=== PATIENT | male | born 1995 | race Caucasian/White ===

== ENCOUNTER 2018-02-06 12:56 | Emergency (ER) | payer BC, SELFPAY ==
[2018-02-06 12:58] VITALS: BP 143/84; PULSE 66; RESP 18; TEMP 36.3; O2SAT 97; BMI 27.1
--- NOTE | 2018-02-06 13:11 | CT_ITS ---
STUDY: CT BRAIN WITHOUT CONTRAST REASON FOR EXAM: Male, 22 years old. Add injury. No loss of consciousness. Dizziness. RADIATION DOSAGE (If Supplied By Facility): CTDIvol = ( 44.99 ) mGy, DLP = ( 812.98 ) mGycm TECHNIQUE: Transaxial CT imaging of the brain was performed without administration of intravenous contrast material. Individualized dose optimization techniques were used for this CT. COMPARISON: None. FINDINGS: Normal soft tissue structures. Normal calvarium. Normal size ventricles and extra-axial spaces for the patient's age. Normal white matter tracts of the cerebral hemispheres. Normal basal ganglia and thalami. Normal brainstem. Normal cerebellum. I suspect a small subdural hematoma of the tentorium. There are no findings of an acute ischemic infarction. Normal visualized paranasal sinuses. CT/Brain/Head without Contrast IMPRESSION: Findings suggestive of a small subdural hematoma of the tentorium. N.B. : The above information has been verbally conveyed by Hira Stein MD to Tc Zuñiga MD, on 02/06/2018 13:58:11 (ET). Electronically Signed: Hira Stein MD at 13:59 EST Tel [phone], Service support ,
--- NOTE | 2018-02-06 13:16 | ED.VISSUMM ---
- ER Visit Summary Date of Service: 02/06/18 Chief Complaint: Head injury History of Present Illness: The patient is a 22 M who is otherwise healthy with up-to-date tetanus presents with scalp injury. Patient states that he was at his in-laws house. He states he was going up the stairs and stood. He had a low being on the top of his head. He states he began to have bleeding from his scalp. He did not lose consciousness, but since then, has felt very dizzy, lightheaded, and felt like is going to pass out. He takes no anticoagulants. He denies other injury. The patient is otherwise healthy. Physical Examination: Vital signs reviewed General: Well-nourished, well-developed Head: Normocephalic, 1 cm scalp plaque on the precipice of the scalp atic Eyes: Pupils equal and reactive, extraocular muscles intact Neck, supple, no lymphadenopathy Heart: Regular rate and rhythm Respiratory: No distress, clear bilaterally Abdomen: Soft, nontender, nondistended, no peritoneal signs Back: Nontender Extremities: Nontender, no edema, no cords Skin: Normal color no rash Neuro: Alert and oriented, no focal or lateralizing deficits Test Results: [] Emergency Department Course and Treatment: [The patient has a GCS of 15, but no loss of consciousness. However, he had persistent nausea and has felt lightheaded. I did obtain a head CT. The CT does have findings that are concerning for a small subdural hemorrhage. I did review this with the radiologist. With this, the patient will be transferred to a tertiary trauma center. He requested I can general. He was discussed with Dr. Gaytan and accepted. I elected not to close his small laceration with hellen as he is going to need repeat head CTs and did not want to create artifact. The patient has no active bleeding. He is comfortable with this plan. He will be transferred. Treatment Plan: [] Disposition: Transfer Impression: 1. Tentorial subdural hemorrhage This note was generated with [employer] dictation software. It may contain incorrect words, spelling, and punctuation that were not noted in review of the chart prior to signing ED Disposition - Plan for ED Patient: Chief Complaint: Head Injury Referrals: [facility] Doctor,Out of [Primary Care Provider] -
--- NOTE | 2018-02-06 13:59 | CT_ITS ---
STUDY: CT CERVICAL SPINE WITHOUT CONTRAST REASON FOR EXAM: Male, 22 years old. Syncope RADIATION DOSAGE (If Supplied By Facility): CTDIvol = ( 19.85 ) mGy, DLP = ( 519.31 ) mGycm TECHNIQUE: High resolution transaxial imaging was performed without contrast material. Sagittal and coronal images were reconstructed. Individualized dose optimization techniques were used for this CT. COMPARISON: None FINDINGS: Normal craniovertebral junction. Normal anterior atlantoaxial articulation. Normal odontoid process. There is straightening of the normal cervical lordosis. Normal vertebral bodies and posterior osseous elements. C2-3: Normal endplates. Normal disc height and morphology. Normal central canal and intervertebral neuroforamina. C3-4: Normal endplates. Normal disc height and morphology. Normal central canal and intervertebral neuroforamina. C4-5: Normal endplates. Normal disc height and morphology. Normal central canal and intervertebral neuroforamina. C5-6: Normal endplates. Normal disc height and morphology. Normal central canal and intervertebral neuroforamina. C6-7: Normal endplates. Normal disc height and morphology. Normal central canal and intervertebral neuroforamina. C7-T1: Normal endplates. Normal disc height and morphology. Normal central canal and intervertebral neuroforamina. Normal visualized soft tissue structures. CT/Spine Cervical without Contras IMPRESSION: Normal unenhanced CT examination of the cervical spine. Electronically Signed: Philippe Madden MD at 15:10 EST , Service support ,
[2018-02-06 14:29] LABS: Absolute Lymphocyte Count 1.46 X10^3/ul (0.83-4.51); Absolute Neutrophil Count 1.9 X10^3/uL (2.0-7.7); Basophil# 0.03 X10^3/uL; Basophil% 0.8 % (0-1); Eosinophil# 0.05 X10^3/uL; Eosinophils% 1.3 % (0-5); Hematocrit 44.2 % (40-54); Hemoglobin 15.5 g/dl (13.0-16.5); Lymphocyte # 1.46 X10^3/ul (4.0); Lymphocyte % 38.6 % (19-41); Mean Corp Hgb Conc 35.1 g/gl (32-36); Mean Corpuscular Hgb 30.9 pg (27.0-32.0); Mean Corpuscular Volume 88.2 fL (80-94); Mean Platelet Vol. 10.3 fl (6.2-12.0); Monocyte# 0.31 X10^3/uL; Monocyte% 8.2 % (0-10); Neutrophil # 1.93 X10^3/uL (2.7-7.7); Neutrophil % 51.1 % (47-70); POSITIVE COUNT NO; POSITIVE DIFFERENTIAL NO; POSITIVE MORPHOLOGY NO; Platelet Count 217 K/mm3 (150-450); RBC Distribution Width CV 12.3 % (11.6-14.6); RBC Distribution Width SD 39.7 fl (35.1-43.9); Red Blood Count 5.01 M/mm3 (4.6-6.2); White Blood Count 3.8 K/mm3 (4.4-11.0)
[2018-02-06] MEDS: Ondansetron 4 MG/2 ML Vial IV (14:29)
[2018-02-06 14:35] LABS: Prothrombin Time (Protime)PT. 13.3 SECONDS (11.7-14.9)
[2018-02-06 14:39] LABS: Anion Gap 5 (5-15); BUN 12 mg/dL (7-18); BUN/Creat Ratio 9.5 RATIO (10-20); Calcium,Total 8.8 mg/dL (8.5-10.1); Chloride 102 mmol/L (98-107); Creatinine, Serum 1.26 mg/dL (0.70-1.30); EST Glomerular Filtration Rate 76 mL/min (>60); Est Glom Filt Rate - Afr Amer 92 mL/min (>60); Estimated Creatinine Clearance 101.79 ml/min; Glucose 88 mg/dL (74-106); Potassium 3.7 mmol/L (3.5-5.1); Sodium Level 138 mmol/L (136-145)
[2018-02-06 15:40] VITALS: BP 138/92; PULSE 54; RESP 16; O2SAT 98
== END 2018-02-06 15:40 | disposition short-term general hospital (02) ==
PROVIDERS: Emergency Provider Emergency Medicine
DX: I62.00 Nontraumatic subdural hemorrhage, unspecified (principal)
CPT/HCPCS: 70450; 72125; 80048; 85025; 85610; 96374; 99284; A4216; J2405

== ENCOUNTER → 2018-05-01 15:28 | Outpatient (CLI) | payer BC, SELFPAY ==
[2018-05-01 17:53] LABS: Hematocrit 45.1 % (40-54); Hemoglobin 14.9 g/dl (13.0-16.5); Mean Corpuscular Volume 90.9 fL (80-94); Mean Platelet Vol. 10.7 fl (6.2-12.0); Platelet Count 231 K/mm3 (150-450); RBC Distribution Width CV 12.9 % (11.6-14.6); RBC Distribution Width SD 42.5 fl (35.1-43.9); Red Blood Count 4.96 M/mm3 (4.6-6.2); White Blood Count 6.1 K/mm3 (4.4-11.0)
[2018-05-01 17:55] LABS: Scan Indicated on CBC? Y/N NO
[2018-05-01 18:03] LABS: Erythrocyte Sedimentation Rate 2 mm/hr (0-15)
[2018-05-01 18:07] LABS: Vitamin B12 863 pg/mL (211-911); Vitamin D,25 Hydroxy 7.7 ng/mL (29.95-100.01)
[2018-05-01 18:16] LABS: ALB/GLOB Ratio 1.3 RATIO (0.9-2.4); AST(SGOT) 16 U/L (15-37); Alanine Aminotransfer ALT/SGPT 27 U/L (16-61); Albumin, Serum 4.4 g/dL (3.2-5.0); Alkaline Phosphatase 100 U/L (45-117); Anion Gap 9 (5-15); BUN 23 mg/dL (7-18); Chloride 105 mmol/L (98-107); Creatinine, Serum 1.15 mg/dL (0.70-1.30); EST Glomerular Filtration Rate 85 mL/min (>60); Est Glom Filt Rate - Afr Amer 102 mL/min (>60); Globulin 3.4 g/dL (2.2-4.2); Glucose 93 mg/dL (74-106); Potassium 4.1 mmol/L (3.5-5.1); Protein, Total 7.8 g/dL (6.4-8.2); Sodium Level 143 mmol/L (136-145)
== END ==
LOC: MFPLAB 15:29
PROVIDERS: Family Provider Family Medicine; PCP Family Medicine; Referring Provider Family Medicine; Visit Provider Family Medicine
DX: R53.83 Other fatigue (principal)
CPT/HCPCS: 36415; 80053; 82306; 82607; 84403; 84443; 85027; 85652

== ENCOUNTER 2018-05-14 09:09 | Emergency (ER) | payer BC, SELFPAY ==
[2018-05-14 08:51] VITALS: BMI 27.1
[2018-05-14 09:10] VITALS: BP 145/83; PULSE 61; RESP 18; TEMP 36.2; O2SAT 98; BMI 28.0
--- NOTE | 2018-05-14 09:25 | ED.DCSUM_ITS ---
History of Present Illness Chief Complaint: Abd Pain Detail of Chief Complaint: Nausea, vomiting diarrhea Informant: Patient Onset: - - Abdominal pain started 2 days ago. The vomiting started 3 days ago. Context: - - Vomiting was associated with nothing initially. He now reports he vomits anytime he attempts to drink anything Timing: Intermittent Quality: 4 episodes of emesis a day and 2 loose bowel movements daily Location: Crampy generalized abdominal discomfort Current Severity: Mild Maximum Severity: Moderate Worsened by: Palpation and vomiting and diarrhea Relieved by: Nothing Associated Symptoms: Thirst, dry mouth and orthostatic symptoms Narrative: Patient is a 22-year-old male who presents with abdominal pain that is described as crampy and is generalized. He reports nausea vomiting diarrhea. He denies hematemesis, melena medication. He states he was sent from the urgent care because of tenderness in the right upper quadrant. Mother has history of cholelithiasis. He has no medical problems. He denied intolerance to greasy food. Occasionally he states he has an upset stomach. He does report decreased urine output. He denies blood or mucus in his stool. He has no risk factors for infectious diarrhea and is not been on any antibiotic for the past month. He denies respiratory or cardiac symptoms. There is an erythematous blotchy 1 x 3 cm blanching rash left antecubital fossa. Prior similar symptoms: No Recent Illness/Hospitalization: No - Past Medical History (1) Depression Status: Acute Past Medical History - Allergies and Home Meds Allergies/Adverse Reactions: Allergies No Known Allergies Allergy (Verified 05/14/18 09:10) Primary Care Physician: Sundar Nielsen MD [Primary Care Provider] - Past Medical History: None Surgical History: no surgical history Lives: Spouse/ Significant Other Smoking Status: Never smoker Alcohol: None Review of Systems General: Denies: Chills, Fever, Sweats, Weight loss Eyes: Denies: Visual changes - bilaterally, Blurred Vision - bilaterally, Diplopia ENT: Denies: Bilateral ear pain, Rhinorrhea, Sore throat Cardiovascular: Denies: Chest pain, Palpitations Respiratory: Denies: Dyspnea, Cough, Dyspnea on exertion, Orthopnea Gastrointestinal: Reports: Abdominal pain, Nausea, Vomiting, Diarrhea. Denies: Melena, Hematochezia Genitourinary: Denies: Dysuria, Hematuria, Frequency Musculoskeletal: Denies: Myalgias, Arthralgias, Back pain, Extremity Pain Skin: Denies: Rash, Wounds Neurological: Denies: Headache, Weakness, Numbness Psych: Reports: Depression. Denies: Suicidal thoughts Hematologic: Denies: Easy bruising, Easy bleeding Physical Exam Vital Signs/Narrative: Vital Signs Temp Pulse Resp BP Pulse Ox 05/14/18 09:10 97.1 F L 61 18 145/83 H 98 Inital Vital Signs reviewed: Yes General: Well nourished, Well developed, No Acute Distress Head: Normocephalic, Atraumatic Eyes: Perrl, EOMI. Negative for: Pale conjunctiva, Scleral icterus ENT: No rhinorrhea, TM's clear, Dry mucous membranes. Negative for: Nasal congestion Neck: Supple, Nontender, No lymphadenopathy, No JVD Cardiovascular: Regular rate, Regular rhythm, No murmurs, Normal S1, Normal S2 Respiratory: No distress, CTA bilaterally, Chest nontender Abdomen: Soft, Nondistended, No masses, Tender. Negative for: Nontender, Normal bowel sounds, Guarding, Rebound tenderness, Hypoactive bowel sounds, Hepatomegaly, Splenomegaly, Mass, Ventral hernia, Umbilical hernia, Hernia irreducible, Rovsig's sign, Ahmadi's sign Back: Nontender, Normal Inspection Extremities: Nontender, No edema Skin: Normal color, No rash, Rash - 1 x 3 cm blanching erythematous rash without lymphangitis, induration or warmth left antecubital fossa.. Negative for: Cyanosis, Jaundice Neurological: Alert, Oriented x3, Cranial nerves II-XII grossly intact, Normal Strength, Normal Sensation, Normal Gait Psychological: Depressed Diagnostic/Tx/Re-eval Laboratory Results 05/14/18 09:38 Sodium 140 Potassium 3.7 Chloride 106 Carbon Dioxide 29.0 Anion Gap 5 BUN 13 Creatinine 1.11 Estim Creat Clear Calc 115.55 Est GFR (MDRD) Af Amer 107 Est GFR (MDRD) Non-Af 88 BUN/Creatinine Ratio 11.7 Glucose 95 Calcium 8.4 L - Rhythm Strip Rhythm Strip: Sinus Rhythm Rate: 68 Ectopy: None - Medical Decision Making With generalized colicky abdominal pain with nausea vomiting diarrhea will treat symptomatically. Since patient states he is not had anything to drink in the last 24 hours or unable to keep anything down for the past 24 hours basic mental panel was obtained. He was treated with 4 mg of Zofran and 1 L normal saline. Suspect patient's symptoms are secondary to viral gastritis. Since he does not have a clinical Ahmadi sign hepatic enzymes were not obtained. Patient was able to drink a can of [place] rahul. He states his pain has diminished. Plan is to discharge to home with prescription for Zofran. Basic metabolic panel was unremarkable with no evidence of hypokalemia, acid-base disturbance or acute kidney injury. ED Disposition - Plan for ED Patient: Disposition: Home or Assisted Living Diagnosis: Combined abdominal pain, vomiting, and diarrhea Instructions: ED Vomiting Diarrhea Nonspecific Ad Prescriptions: Ondansetron [Zofran Odt] 4 mg PO Q8H PRN PRN #5 tablet PRN Reason: Nausea Referrals: Sundar Nielsen MD [Primary Care Provider] - 3-5 Days if not improving Additional Instructions: Your prescription was electronically transmitted to [facility].
[2018-05-14] MEDS: Ondansetron 4 MG/2 ML Vial IV (09:45)
[2018-05-14] MEDS: 0.9% Normal Saline 1,000 ML 1000 ML IV (09:45)
[2018-05-14 10:08] LABS: Anion Gap 5 (5-15); BUN 13 mg/dL (7-18); BUN/Creat Ratio 11.7 RATIO (10-20); Calcium,Total 8.4 mg/dL (8.5-10.1); Chloride 106 mmol/L (98-107); Creatinine, Serum 1.11 mg/dL (0.70-1.30); EST Glomerular Filtration Rate 88 mL/min (>60); Est Glom Filt Rate - Afr Amer 107 mL/min (>60); Estimated Creatinine Clearance 115.55 ml/min; Glucose 95 mg/dL (74-106); Potassium 3.7 mmol/L (3.5-5.1); Sodium Level 140 mmol/L (136-145)
[2018-05-14 11:47] VITALS: BP 128/77; PULSE 68; RESP 17; O2SAT 98
== END 2018-05-14 11:48 | disposition home or self-care (01) ==
PROVIDERS: Emergency Provider Emergency Medicine; Family Provider Family Medicine; PCP Family Medicine
DX: R10.9 Unspecified abdominal pain (principal); R19.7 Diarrhea, unspecified; R11.2 Nausea with vomiting, unspecified; F32.9 Major depressive disorder, single episode, unspecified
CPT/HCPCS: 80048; 96361; 96374; 99283; J7030; A4216; J2405

== ENCOUNTER 2018-10-23 14:38 | Emergency (ER) | payer BC, SELFPAY ==
[2018-10-23 14:38] VITALS: BP 156/115; PULSE 74; RESP 16; TEMP 35.9; O2SAT 97; BMI 27.8
--- NOTE | 2018-10-23 15:37 | CT_ITS ---
STUDY: CT ABDOMEN AND PELVIS WITHOUT CONTRAST REASON FOR EXAM: Male, 23 years old. Right lower quadrant pain RADIATION DOSAGE (If Supplied By Facility): DLP = ( 566.93 ) mGycm TECHNIQUE: Transaxial images were obtained from the dome of the diaphragm to the symphysis pubis without oral contrast, and without intravenous contrast. Sagittal and coronal images were reconstructed. Individualized dose optimization techniques were used for this CT. COMPARISON: None. FINDINGS: Evaluation of the abdominal viscera is limited in the absence of intravenous contrast. The visualized lung bases are clear. The visualized portions of the heart and pericardium are within normal limits. There are no calcified gallstones present. The liver demonstrates an unremarkable unenhanced appearance. The spleen is normal in size. The pancreas demonstrates an unremarkable unenhanced appearance. The adrenal glands are within normal limits. There is an obstructing 2 mm stone in the right distal ureter with mild associated hydroureteronephrosis. Mild right perinephric stranding is present. The left kidney is normal. Normal visualized stomach. There is no bowel obstruction or inflammation. The aorta is normal in caliber. There is no abdominal or pelvic free air, free fluid, fluid collection or lymphadenopathy. There are no destructive osseous lesions. CT/Abdomen/Pelvis without Cont IMPRESSION: Obstructing 2 mm stone in the right distal ureter with mild associated hydroureteronephrosis. Electronically Signed: Herbie Callaway, at 18:05 EDT Tel , Service support ,
--- NOTE | 2018-10-23 15:39 | ED.DCSUM_ITS ---
- ER Visit Summary Date of Service: 10/23/18 Chief Complaint: Abdominal pain History of Present Illness: The patient is a 23 M who has abdominal pain. Started 2 hours ago its waxing and waning but comes in waves. Is very sharp in the right side and radiates to his right groin. He has had nausea and is vo mited twice. No diarrhea but seems to be constipated. No urinary symptoms. He denies fevers. He has had an appendectomy in the past and says he has had issues with abdominal pain since he was a child. He took nothing for this at home. Physical Examination: Vital signs reviewed. HEENT exam unremarkable. Heart is regular rate and rhythm without murmurs. Lungs are clear to auscultation. Abdomen is soft with tenderness on the right lower quadrant. No guarding or rebound tenderness. Extremities reveal no edema. Skin exam normal. Neurologic exam normal. Test Results: Laboratory studies unremarkable save for BUN of 19 and creatinine 1.54. Urinalysis negative except for ketones of 15. CBC normal. CAT scan reveals a 2 mm right distal ureteral stone Emergency Department Course and Treatment: The patient was given morphine and Zofran without any relief but he was given Toradol and feels much better. The stone is likely the cause of his pain. I will give him a few [place] to take for pain at home. He will use ibuprofen as well. He will follow-up with his PCP Treatment Plan: [] Disposition: Discharge Impression: Right ureterolithiasis This note was generated with [employer] dictation software. It may contain incorrect words, spelling, and punctuation that were not noted in review of the chart prior to signing ED Disposition - Plan for ED Patient: Referrals: Sundar Nielsen MD [Primary Care Provider] -
[2018-10-23] MEDS: Ondansetron 4 MG/2 ML Vial IV (15:44)
[2018-10-23] MEDS: Morphine 4 MG/ML Syringe IV (15:44)
[2018-10-23 15:49] LABS: Absolute Lymphocyte Count 1.49 X10^3/uL (0.83-4.51); Absolute Neutrophil Count 5.6 X10^3/uL (2.0-7.7); Basophil# 0.04 X10^3/uL; Basophil% 0.5 % (0-1); Eosinophil# 0.07 X10^3/uL; Eosinophils% 0.9 % (0-5); Lymphocyte # 1.49 X10^3/ul (4.0); Lymphocyte % 19.4 % (19-41); Mean Corp Hgb Conc 34.9 g/dL (32-36); Mean Corpuscular Hgb 30.8 pg (27.0-32.0); Mean Corpuscular Volume 88.3 fL (80-94); Mean Platelet Vol. 10.3 fl (6.2-12.0); Monocyte# 0.51 X10^3/uL; Monocyte% 6.6 % (0-10); NRBC Flagged by Analyzer 0 % (0-5); Neutrophil # 5.56 X10^3/uL (2.7-7.7); Neutrophil % 72.2 % (47-70); Platelet Count 214 K/mm3 (150-450); RBC Distribution Width CV 12.1 % (11.6-14.6); RBC Distribution Width SD 39.2 fl (35.1-43.9); Red Blood Count 4.87 M/mm3 (4.6-6.2); White Blood Count 7.7 K/mm3 (4.4-11.0)
[2018-10-23 16:11] LABS: AST(SGOT) 16 U/L (15-37); Alanine Aminotransfer ALT/SGPT 34 U/L (16-61); Albumin, Serum 4.2 g/dL (3.2-5.0); Alkaline Phosphatase 96 U/L (45-117); Anion Gap 8 (5-15); BUN 19 mg/dL (7-18); BUN/Creat Ratio 12.3 RATIO (10-20); Bilirubin, Direct 0.18 mg/dL (0.00-0.30); Calcium,Total 8.8 mg/dL (8.5-10.1); Chloride 108 mmol/L (98-107); Creatinine, Serum 1.54 mg/dL (0.70-1.30); EST Glomerular Filtration Rate 60 mL/min (>60); Est Glom Filt Rate - Afr Amer 73 mL/min (>60); Estimated Creatinine Clearance 82.58 ml/min; Globulin 3.5 g/dL (2.2-4.2); Glucose 105 mg/dL (74-106); Lipase 81 U/L (73-393); Potassium 3.6 mmol/L (3.5-5.1); Protein, Total 7.7 g/dL (6.4-8.2); Sodium Level 144 mmol/L (136-145)
[2018-10-23 16:39] LABS: Bacteria 0 SEEN /hpf (None Seen); Mucous, Urine 0 SEEN /hpf (<or=2+); Red Blood Cells-Urine 0 SEEN /hpf (0-5); Squamous Epithelial Cells - UA 0 SEEN /hpf (0-5); White Blood Cells 0 SEEN /hpf (0-5)
[2018-10-23] MEDS: Ketorolac 30 MG/ML Syringe IV (16:46)
[2018-10-23 16:48] LABS: Color, Urine Yellow (Yellow); Glucose, Dipstick Normal (Normal); Ketone-Dipstick 15 mg/dl (Negative); Leukocyte Esterase-Dipstick Negative /ul (Negative); Nitrite-Dipstick Negative (Negative); Occult Blood-Urine Negative /ul (Negative); Protein-Dipstick 15 mg/dl (Negative); Specific Gravity, Urine 1.015 (1.002-1.030); Urine Bilirubin Dipstick Negative (Negative); Urine Clarity Clear (Clear); Urine Urobilinogen 1 mg/dl (Normal)
--- NOTE | 2018-10-23 18:15 | DCINST.ED_ITS ---
ED Disposition - Plan for ED Patient: Disposition: Home or Assisted Living Instructions: KIDNEY STONE w/ Colic Prescriptions: Hydrocodone Bitart/Apap 5-325 [[place] 5MG-325MG] 1 tab PO Q6H PRN PRN 3 Days #8 tab PRN Reason: Pain Prescription Printed Referrals: Sundar Nielsen MD [Primary Care Provider] -
[2018-10-23 18:34] VITALS: BP 142/80; PULSE 80; RESP 17; O2SAT 97
--- NOTE | 2018-10-23 18:34 | ED.RN ---
PT GIVEN WRITTEN AND VERBAL DISHARGE INSTRUCTIONS AND HOME GOING PRESCRIPTIONS. PT EDUCATED NOT TO DRIVE WHEN TAKING NARCOTIC MEDICATION. PT VERBALIZES UNDERSTANDING AND DENIES ANY FURTHER QUESTIONS. PT IV D/C AND COVERED WITH 2X2 GAUZE AND PAPER TAPE. PT DRESSES SELF AND AMBULATES OUT WITH FRIEND.
== END 2018-10-23 18:36 | disposition home or self-care (01) ==
PROVIDERS: Emergency Provider Emergency Medicine; Family Provider Family Medicine; PCP Family Medicine
DX: N20.1 Calculus of ureter (principal); K59.00 Constipation, unspecified; Z87.442 Personal history of urinary calculi
CPT/HCPCS: 74176; 80048; 80076; 81001; 83690; 85025; 96374; 96375; 99284; A4216; J2405

== ENCOUNTER → 2020-07-06 12:21 | Outpatient (CLI) | payer BC, SELFPAY ==
[2020-07-06 12:27] LABS: Bacteria 0 SEEN /hpf (None Seen); Mucous, Urine 0 SEEN /hpf (<or=2+); Red Blood Cells-Urine 0 SEEN /hpf (0-5); Squamous Epithelial Cells - UA 0 SEEN /hpf (0-5); White Blood Cells 0 SEEN /hpf (0-5)
[2020-07-06 15:08] LABS: Absolute Lymphocyte Count 1.72 X10^3/uL (0.83-4.51); Absolute Neutrophil Count 2.4 X10^3/uL (2.0-7.7); Basophil# 0.04 X10^3/uL; Basophil% 0.9 % (0-1); Eosinophil# 0.11 X10^3/uL; Eosinophils% 2.4 % (0-5); Hematocrit 44.6 % (40-54); Hemoglobin 14.7 g/dL (13.0-16.5); Lymphocyte # 1.72 X10^3/ul (0.83-4.51); Lymphocyte % 36.8 % (19-41); Mean Platelet Vol. 10.8 fl (6.2-12.0); Monocyte# 0.37 X10^3/uL; Monocyte% 7.9 % (0-10); NRBC Flagged by Analyzer 0 % (0-5); Neutrophil # 2.43 X10^3/uL (2.7-7.7); Neutrophil % 51.8 % (47-70); Platelet Count 220 K/mm3 (150-450); RBC Distribution Width CV 12.7 % (11.6-14.6); RBC Distribution Width SD 41.8 fl (35.1-43.9); White Blood Count 4.7 K/mm3 (4.4-11.0)
[2020-07-06 15:20] LABS: Color, Urine Yellow (Yellow); Glucose, Dipstick Normal (Normal); Ketone-Dipstick Negative (Negative); Leukocyte Esterase-Dipstick Negative /ul (Negative); Nitrite-Dipstick Negative (Negative); Occult Blood-Urine Negative /ul (Negative); Protein-Dipstick Negative (Negative); Urine Bilirubin Dipstick Negative (Negative); Urine Clarity Clear (Clear); Urine Urobilinogen Normal (Normal)
[2020-07-06 15:51] LABS: ALB/GLOB Ratio 1.1 RATIO (0.9-2.4); AST(SGOT) 22 U/L (15-37); Alanine Aminotransfer ALT/SGPT 43 U/L (16-61); Albumin, Serum 3.9 g/dL (3.2-5.0); Alkaline Phosphatase 105 U/L (45-117); Anion Gap 5 (5-15); BUN 18 mg/dL (7-18); Calcium,Total 8.9 mg/dL (8.5-10.1); Chloride 106 mmol/L (98-107); Creatinine, Serum 1.06 mg/dL (0.70-1.30); EST Glomerular Filtration Rate 91 mL/min (>60); Est Glom Filt Rate - Afr Amer 110 mL/min (>60); Globulin 3.7 g/dL (2.2-4.2); Glucose 93 mg/dL (74-106); Magnesium 1.9 mg/dL (1.6-2.6); Protein, Total 7.6 g/dL (6.4-8.2); Sodium Level 140 mmol/L (136-145)
== END ==
PROVIDERS: Family Medicine; PCP Family Medicine; Referring Provider Family Medicine; Visit Provider Family Medicine
DX: R03.0 Elevated blood-pressure reading, without diagnosis of hypertension (principal)
CPT/HCPCS: 36415; 80053; 81001; 83735; 84443; 85025

== ENCOUNTER 2023-05-08 00:22 | Emergency (ER) | payer BC, SELFPAY ==
[2023-05-08 00:23] VITALS: BP 120/94; PULSE 99; RESP 16; TEMP 36.1; O2SAT 95; BMI 32.4
[2023-05-08] MEDS: Metoclopramide 10 MG/2 ML Vial 5 MG IV (00:39)
[2023-05-08] MEDS: Ketorolac 30 MG/ML Syringe IV (00:39)
[2023-05-08] MEDS: 0.9% Normal Saline (1000mL) 1,000 ML 1000 ML IV (00:41)
[2023-05-08 00:48] LABS: Absolute Neutrophil Count 10.4 X10^3/uL (2.0-7.7); Basophil# 0.05 X10^3/uL; Basophil% 0.4 % (0-1); Eosinophil# 0.09 X10^3/uL; Eosinophils% 0.8 % (0-5); Hematocrit 45.6 % (40-54); Hemoglobin 15.4 g/dL (13.0-16.5); Lymphocyte % 5.9 % (19-41); Mean Corp Hgb Conc 33.8 g/dL (32-36); Mean Corpuscular Volume 85.9 fL (80-94); Mean Platelet Vol. 10.3 fl (6.2-12.0); Monocyte# 0.65 X10^3/uL; Monocyte% 5.5 % (0-10); NRBC Flagged by Analyzer 0 % (0-5); Neutrophil # 10.37 X10^3/uL (2.7-7.7); Neutrophil % 87.1 % (47-70); Platelet Count 254 K/mm3 (150-450); RBC Distribution Width CV 12.8 % (11.6-14.6); RBC Distribution Width SD 39.5 fl (35.1-43.9); Red Blood Count 5.31 M/mm3 (4.6-6.2); White Blood Count 11.9 K/mm3 (4.4-11.0)
[2023-05-08 01:06] LABS: ALB/GLOB Ratio 1.2 RATIO (0.9-2.4); AST(SGOT) 20 U/L (15-37); Alanine Aminotransfer ALT/SGPT 40 U/L (16-61); Albumin, Serum 4.3 g/dL (3.2-5.0); Alkaline Phosphatase 98 U/L (45-117); Anion Gap 6 (5-15); BUN 23 mg/dL (7-18); BUN/Creat Ratio 15.9 RATIO (10-20); Calcium,Total 9.1 mg/dL (8.5-10.1); Chloride 106 mmol/L (98-107); Creatinine, Serum 1.45 mg/dL (0.70-1.30); EST Glomerular Filtration Rate 62 mL/min (>60); Est Glom Filt Rate - Afr Amer 75 mL/min (>60); Estimated Creatinine Clearance 98.28 ml/min; Globulin 3.6 g/dL (2.2-4.2); Glucose 145 mg/dL (74-106); Potassium 3.5 mmol/L (3.5-5.1); Protein, Total 7.9 g/dL (6.4-8.2); Sodium Level 138 mmol/L (136-145)
--- NOTE | 2023-05-08 01:19 | EDS_ITS ---
HPI HPI - GI History of Present Illness Chief Complaint: Nausea/Vomiting/Diarrhea Informant: patient Narrative Narrative: Patient presents after about 4 hours of nonbloody vomiting and diarrhea. No abdominal pain. No fevers or chills. He states from all of the vomiting, his chest muscles are spasming, and his back is spasming. He states it feels like muscle pain. States he has had this before. No known sick contacts. No travel out of the area. States last thing he ate was [employer] prior to the onset of symptoms, but his girlfriend ate the same thing at the same time and she is not sick. Has had prior remote appendectomy no other abdominal surgeries. [facility] Medical History Chronic neck and back pain Contact with and (suspected) exposure to other viral communicable diseases COVID-19 Diarrhea Severe headache Home Medications ondansetron 4 mg disintegrating tablet 8 mg (2 x 4 mg) PO Q8H PRN PRN Nausea #20 tabs 05/08/23 [Rx Last Taken Unknown] Allergy/AdvReac Type Severity Reaction Status Date / Time No Known Allergies Allergy Verified 05/08/23 00:22 Surgical History History of appendectomy Social History Smoking Status: Never smoker alcohol intake: current ROS ROS ED Constitutional Constitutional ED: Denies chills or fever(s) Eyes Eyes: Denies change in vision or diplopia ENT ENT ED: Denies rhinorrhea or sore throat Cardiovascular Cardiovascular: Reports as per HPI and chest pain; Denies lightheadedness, palpitations or radiating jaw, neck or arm pain Respiratory/Chest Respiratory/Chest: Denies cough or dyspnea Gastrointestinal Gastrointestinal: Reports diarrhea, nausea and vomiting; Denies abdominal pain, hematochezia or melena Genitourinary Genitourinary ED: Denies dysuria or hematuria Musculoskeletal Musculoskeletal: Reports back pain; Denies neck pain Integumentary Denies abscess or rash Neurologic Neurologic: Denies headache(s), paresthesias or weakness Psychiatric Psychiatric: Denies anxiety or suicidal thoughts EXAM Physical Exam Const Vital Signs: 03/06/24 00:23 Temperature 97 F L Temperature Source Temporal Pulse Rate 99 Respiratory Rate 16 Blood Pressure 120/94 H Blood Pressure Mean 102 Pulse Ox 95 Positive well nourished and well developed Constitutional Narrative: Appears malaised, no distress General Appearance ED: well developed and NAD HEENT Reports moist mucous membranes normocephalic and atraumatic Eyes PERRL and EOMs intact bilaterally Neck full ROM and supple Chest Wall Chest Narrative: Tender throughout, reproducing his discomfort Resp normal respiratory effort and clear to auscultation bilaterally Cardio regular rate, regular rhythm and no murmurs GI non-distended GI Narrative: Mildly tender across upper abdomen no guarding or rebound tenderness negative Ahmadi Auscultation: normoactive bowel sounds Palpation: soft Back/Spine no CVA tenderness General Back: other FROM Extremity normal to inspection General Extremety ED: Negative for edema, pulses abnormal or tenderness General Extremity: Negative for edema or pulses abnormal Neuro oriented x3, CN's II-XII intact bilaterally and no sensory deficits noted Sensorium / Orientation: awake and alert Motor Exam: strength 5/5 throughout Psych thought process normal Mood & Affect: anxious Skin no rashes or lesions noted and no wounds MDM MDM MDM Narrative Medical decision making narrative: Labs noted there is a mild nonspecific leukocytosis and mild elevated creatinine. He was given IV fluids, Reglan, and Toradol for his symptoms. He feels a lot better. Mother is here and really wants an EKG done to make sure he is not having a heart attack. With reproducible chest discomfort, and no risk factors I advised her that I feel this is very likely to be musculoskeletal, as the patient suggested, but she still wants an EKG which I was happy to order. I reviewed it and I interpret the EKG is normal. Lab Data Attestation: I reviewed the patient's lab results. Labs: Laboratory Results - last 24 hr 05/08/23 00:40 WBC 11.9 H RBC 5.31 Hgb 15.4 Hct 45.6 MCV 85.9 MCH 29.0 MCHC 33.8 RDW Std Deviation 39.5 RDW Coeff of Paresh 12.8 Plt Count 254 MPV 10.3 Immature Gran % (Auto) 0.300 Neut % (Auto) 87.1 H Lymph % (Auto) 5.9 L [place] % (Auto) 5.5 Eos % (Auto) 0.8 Baso % (Auto) 0.4 Absolute Neuts (auto) 10.4 H Absolute Lymphs (auto) 0.70 L Nucleated RBC % 0 Sodium 138 Potassium 3.5 Chloride 106 Carbon Dioxide 26.0 Anion Gap 6 BUN 23 H Creatinine 1.45 H Estim Creat Clear Calc 98.28 Est GFR (MDRD) Af Amer 75 Est GFR (MDRD) Non-Af 62 BUN/Creatinine Ratio 15.9 Glucose 145 H Calcium 9.1 Total Bilirubin 0.70 AST 20 ALT 40 Alkaline Phosphatase 98 Total Protein 7.9 Albumin 4.3 Globulin 3.6 Albumin/Globulin Ratio 1.2 Rhythm Strip Rhythm Strip: Sinus Rhythm Rate: 92 Ectopy: None EKG Initial EKG: Attestation: I personally reviewed and interpreted this EKG as follows: Interpretation: Sinus Rhythm and No Acute Injury Pattern Comments: nml EKG Discharge Plan Triage Chief Complaint: Nausea/Vomiting/Diarrhea ED Provider: Jeremias Chahal Dx/Rx/DC Orders Clinical Impression: Nausea vomiting and diarrhea, Musculoskeletal chest pain, Musculoskeletal back pain Instructions: ED Vomit Diarrhea Nonspec Adult Prescriptions: New ondansetron [ondansetron] 4 mg tablet,disintegrating 8 mg PO Q8H PRN PRN (Reason: Nausea) Qty: 20 0RF Primary Care Provider: Sundar Nielsen Referrals: Sundar Nielsen MD [Primary Care Provider] - 3-5 Days if not improving Disposition Disposition: Home, Self Care
--- NOTE | 2023-05-08 01:24 | EKG12_ITS ---
Test Reason : DYSRHYTHMIA Blood Pressure : / mmHG Vent. Rate : 092 BPM Atrial Rate : 092 BPM P-R Int : 154 ms QRS Dur : 072 ms QT Int : 358 ms P-R-T Axes : 027 054 022 degrees QTc Int : 442 ms Normal sinus rhythm Normal ECG Confirmed by Tc Baron ([id number]), acquisitions editor GUS DANG ([id number]) on 05/08/2023 9:46:10 AM Referred By: Confirmed By:Tc Baron
[2023-05-08 02:03] VITALS: BP 122/82; PULSE 102; RESP 16; TEMP 36.6; O2SAT 96
== END 2023-05-08 02:09 | disposition home or self-care (01) ==
PROVIDERS: Emergency Provider Emergency Medicine; PCP Family Medicine; Visit Provider Emergency Medicine
DX: R11.2 Nausea with vomiting, unspecified (principal); R19.7 Diarrhea, unspecified; R07.89 Other chest pain; Z90.49 Acquired absence of other specified parts of digestive tract; M54.89 Other dorsalgia
CPT/HCPCS: 80053; 85025; 93005; 99283; J7030; A4216

== ENCOUNTER 2023-11-10 03:02 | Emergency (ER) | payer BC, SELFPAY ==
[2023-11-10 03:03] VITALS: BP 148/91; PULSE 71; RESP 18; TEMP 36.5; O2SAT 97; BMI 34.2
--- NOTE | 2023-11-10 03:28 | EX.ED.GUMALE ---
HPI History of Present Illness Chief Complaint: Male Pain/Injury Informant: patient Narrative Narrative: Patient presenting almost 3:30 AM for left testicular pain. He states is been bothering him since about 8 AM the previous morning, about 20 hours. He states this started gradually about an hour after his significant other accidentally kneed him in the scrotum in bed. Pain has been coming in waves off-and-on, but the pain has been constant the entire day. Tonight when he laid down it became worse so he presents for evaluation. He states the pain radiates up into his abdomen a little bit, but he has no back pain, unilateral abdominal pain, nausea, vomiting, fevers, chills, or any urinary symptoms or hematuria. [facility] Medical History ADHD PTSD (post-traumatic stress disorder) COVID-19 Contact with and (suspected) exposure to other viral communicable diseases Chronic neck and back pain Diarrhea Severe headache Home Medications ?Medication ?Instructions ?Recorded ?Last Taken ?Type clonidine HCl 0.1 mg tablet 0.1 mg PO BID 11/10/23 Unknown History dextroamphetamine-amphetamine 10 10 mg PO DAILY 11/10/23 Unknown History mg tablet (Adderall) Allergy/AdvReac Type Severity Reaction Status Date / Time No Known Allergies Allergy Verified 11/10/23 03:03 Surgical History History of appendectomy Social History Smoking Status: Never smoker alcohol intake: current ROS ROS ED Constitutional Constitutional ED: Denies chills or fever(s) Gastrointestinal Gastrointestinal: Reports abdominal pain; Denies nausea or vomiting Genitourinary Genitourinary ED: Reports as per HPI and scrotal pain; Denies dysuria, hematuria or urinary frequency Musculoskeletal Musculoskeletal: Denies back pain Neurologic Neurologic: Denies headache(s), paresthesias or weakness EXAM Physical Exam Const Vital Signs: 11/10/23 03:03 Temperature 97.7 F L Temperature Source Oral Pulse Rate 71 Respiratory Rate 18 Blood Pressure 148/91 H Blood Pressure Mean 110 Pulse Ox 97 Oxygen Delivery Method Room Air Positive well nourished and well developed General Appearance ED: well developed and NAD Eyes PERRL and EOMs intact bilaterally Resp normal respiratory effort GI non-tender and non-distended Auscultation: normoactive bowel sounds Palpation: soft no CVA tenderness Narrative: Examined while standing. There is tenderness in the left hemiscrotum this seems to be posterior and less on top of the testicle. In gently squeezing the testicle he does not have significant pain. The testicular lie appears normal. There is no erythema, ecchymosis/purpura, or left hemiscrotal enlargement. There is no blue dot sign. Cremasterics intact. Penis is normal-appearing. No palpable hernias. Right side is normal-appearing with symmetric lie and no tenderness. Extremity normal to inspection General Extremety ED: Negative for edema General Extremity: Negative for edema Neuro oriented x3, CN's II-XII intact bilaterally, no focal motor deficits and no sensory deficits noted Psych mental status grossly normal Skin Lesions: no lesions Rashes: no rashes MDM MDM MDM Narrative Medical decision making narrative: I think it is reasonable to ultrasound this patient scrotum to rule out torsion which is less likely, and testicular rupture/injury, and/or epididymitis. There is no emergency medical technician at the hospital at this time. Since my suspicion for torsion given the history is so low, and the fact that the patient presents 20 hours after the onset of discomfort, I do not think we need to call train electronic technician in from home in order to have the ultrasound performed. I offered to have him initially provide us with a urine specimen, I sent this for urinalysis as well as GC and chlamydia to rule that out he has no history of the latter or exposure that he knows of. I also given him an injection of Toradol. This really helped his discomfort, the urinalysis is negative, GC and Chlamydia were sent and eventually returned both negative. Given that the patient did have an injury prior to this, I recommend an ultrasound, less to rule out torsion but more to rule out an intrascrotal injury. He is amenable to waiting several hours until ultrasound techs are here and able to obtain imaging. Patient was checked out to the a.m. physician at 0700 shift change. Lab Data Attestation: I reviewed the patient's lab results. Labs: Laboratory Results - last 24 hr 11/10/23 03:48 Urine Color Yellow Urine Clarity Clear Urine pH 5.0 Ur Specific [place] 1.025 Urine Protein 15 H Urine Glucose (UA) Normal Urine Ketones 5 H Urine Occult Blood Negative Urine Nitrite Negative Urine Bilirubin Negative Urine Urobilinogen Normal Ur Leukocyte Esterase Negative Urine RBC 0 SEEN Urine WBC 0 SEEN Ur Squamous Epith Cells 0 SEEN Urine Bacteria 0 SEEN Urine Mucus 0 SEEN Discharge Plan Triage Chief Complaint: Male Pain/Injury ED Provider: Jeremias Chahal Dx/Rx/DC Orders Clinical Impression: Left testicular pain Prescriptions: No Action clonidine HCl 0.1 mg tablet 0.1 mg PO BID dextroamphetamine-amphetamine [Adderall] 10 mg tablet 10 mg PO DAILY Primary Care Provider: Jacob Nielsen Referrals: Jacob Nielsen MD [Primary Care Provider] - Print Language: Irish
[2023-11-10] MEDS: Ketorolac 60 MG/2 ML Vial IM (03:33)
[2023-11-10 03:58] LABS: Bacteria 0 SEEN /hpf (None Seen); Mucous, Urine 0 SEEN /hpf (<or=2+); Red Blood Cells-Urine 0 SEEN /hpf (0-5); Squamous Epithelial Cells - UA 0 SEEN /hpf (0-5); White Blood Cells 0 SEEN /hpf (0-5)
[2023-11-10 04:01] LABS: Color, Urine Yellow (Yellow); Glucose, Dipstick Normal (Normal); Ketone-Dipstick 5 mg/dl (Negative); Leukocyte Esterase-Dipstick Negative /ul (Negative); Nitrite-Dipstick Negative (Negative); Occult Blood-Urine Negative /ul (Negative); Protein-Dipstick 15 mg/dl (Negative); Specific Gravity, Urine 1.025 (1.002-1.030); Urine Bilirubin Dipstick Negative (Negative); Urine Clarity Clear (Clear); Urine Urobilinogen Normal (Normal)
--- NOTE | 2023-11-10 04:30 | US_ITS ---
INDICATION: left testicle pain/injury EXAMINATION: Ultrasound US Scrotum (Contents) TECHNIQUE: Realtime ultrasound of the testicles was performed with grayscale, Color Doppler and spectral Doppler analysis. COMPARISON: No relevant prior comparison study available FINDINGS: RIGHT: TESTIS: 3.2 x 4.5 x 2.5 mm. Normal in size and echotexture, without focal lesion. COLOR DOPPLER: Normal arterial flow present in the testicle with monophasic waveforms. EPIDIDYMIS: Normal in size and echotexture, without focal lesion. [Normal color Doppler flow pattern in the epididymis. HYDROCELE: None. VARICOCELE: None. LEFT: TESTIS: 2.7 x 4.3 x 2.3 cm. Normal in size and echotexture, without focal lesion. COLOR DOPPLER: Normal arterial flow present in the testicle with monophasic waveforms. EPIDIDYMIS: Normal in size and echotexture, without focal lesion. [Normal color Doppler flow pattern in the epididymis. HYDROCELE: There is a small hydrocele. VARICOCELE: None. US/Testicular with Arterial Flow IMPRESSION: Small left hydrocele. Electronically Signed: Aracelis Vo MD at 8:31 EDT ,
[2023-11-10 07:02] VITALS: BP 124/81; PULSE 64; RESP 16; O2SAT 98
[2023-11-10 08:39] VITALS: BP 118/75; PULSE 64; RESP 16; TEMP 36.5; O2SAT 98
== END 2023-11-10 08:42 | disposition home or self-care (01) ==
PROVIDERS: Emergency Provider Emergency Medicine; PCP Family Medicine; Visit Provider Emergency Medicine
DX: N50.812 Left testicular pain (principal); R10.9 Unspecified abdominal pain; Z86.16 Personal history of COVID-19; F90.9 Attention-deficit hyperactivity disorder, unspecified type
CPT/HCPCS: 76870; 81001; 87491; 87591; 93976; 96372; 99282

== ENCOUNTER → 2024-04-24 | Outpatient (CLI) | payer BC, SELFPAY ==
--- NOTE | 2024-04-24 09:20 | RAD_ITS ---
PROCEDURE: Lumbar spine radiographs REASON FOR EXAM: Pain TECHNIQUE: Four views of the lumbar spine COMPARISON: None. FINDINGS: See impression RAD/L/S Spine Min 4 Views IMPRESSION: Vertebral body heights, disc spaces and alignment are intact. No significant f acet arthropathy. Negative for pars defects. Sacroiliac joints are intact. Reading Location: [facility]
--- NOTE | 2024-04-24 09:20 | RAD_ITS ---
PROCEDURE: HAND MIN 3 VIEWS REASON FOR EXAM: Pain TECHNIQUE: 3 view(s) of the right hand COMPARISON: None. FINDINGS: No visible fracture. No suspicious bone lesion. Normal alignment. Soft tissues are unremarkable. RAD/Hand Min 3 Views IMPRESSION: No acute or significant osseous abnormality in the right hand Reading Location: [facility]
--- NOTE | 2024-04-24 09:20 | RAD_ITS ---
PROCEDURE: HAND MIN 3 VIEWS REASON FOR EXAM: Pain TECHNIQUE: 3 view(s) of the left hand COMPARISON: None. FINDINGS: No visible fracture. No suspicious bone lesion. Normal alignment. Soft tissues are unremarkable. RAD/Hand Min 3 Views IMPRESSION: No acute or significant osseous abnormality in the left hand Reading [facility]
[2024-04-24 12:39] LABS: Absolute Lymphocyte Count 2.25 X10^3/uL (0.83-4.51); Absolute Neutrophil Count 2.6 X10^3/uL (2.0-7.7); Basophil# 0.07 X10^3/uL; Basophil% 1.3 % (0-1); Eosinophil# 0.12 X10^3/uL; Eosinophils% 2.2 % (0-5); Hematocrit 42.1 % (40-54); Hemoglobin 14.2 g/dL (13.0-16.5); Lymphocyte # 2.25 X10^3/ul (0.83-4.51); Lymphocyte % 40.8 % (19-41); Mean Corp Hgb Conc 33.7 g/dL (32-36); Mean Corpuscular Hgb 30.3 pg (27.0-32.0); Mean Corpuscular Volume 89.8 fL (80-94); Mean Platelet Vol. 10.8 fl (6.2-12.0); Monocyte# 0.49 X10^3/uL; Monocyte% 8.9 % (0-10); NRBC Flagged by Analyzer 0 % (0-5); Neutrophil # 2.57 X10^3/uL (2.7-7.7); Neutrophil % 46.6 % (47-70); Platelet Count 257 K/mm3 (150-450); RBC Distribution Width CV 12.9 % (11.6-14.6); Red Blood Count 4.69 M/mm3 (4.6-6.2); White Blood Count 5.5 K/mm3 (4.4-11.0)
[2024-04-24 13:13] LABS: ALB/GLOB Ratio 1.1 RATIO (0.9-2.4); AST(SGOT) 18 U/L (15-37); Alanine Aminotransfer ALT/SGPT 46 U/L (16-61); Albumin, Serum 3.9 g/dL (3.2-5.0); Alkaline Phosphatase 109 U/L (45-117); Anion Gap 6 (5-15); BUN 22 mg/dL (7-18); BUN/Creat Ratio 16.7 RATIO (10-20); Calcium,Total 9.2 mg/dL (8.5-10.1); Chloride 106 mmol/L (98-107); Cholesterol 161 mg/dL (200); Creatinine, Serum 1.32 mg/dL (0.70-1.30); EST Glomerular Filtration Rate 69 mL/min (>60); Est Glom Filt Rate - Afr Amer 83 mL/min (>60); Globulin 3.7 g/dL (2.2-4.2); Glucose 109 mg/dL (74-106); High Density Lipoprotein 39 mg/dL; Potassium 3.9 mmol/L (3.5-5.1); Protein, Total 7.6 g/dL (6.4-8.2); Sodium Level 139 mmol/L (136-145); Triglycerides 143 mg/dL; Very Low Density Lipoprotein 29 mg/dL (5-40)
== END | disposition home or self-care (01) ==
PROVIDERS: PCP Nurse Practitioner Family; Referring Provider Nurse Practitioner Family; Visit Provider Nurse Practitioner Family
DX: Z00.01 Encounter for general adult medical examination with abnormal findings (principal); M54.50 Low back pain, unspecified
CPT/HCPCS: 36415; 72110; 73130; 80053; 80061; 85025

== ENCOUNTER → 2024-07-15 | Outpatient (CLI) | payer BC, SELFPAY ==
--- NOTE | 2024-07-15 12:58 | NEURO ---
NCS and/or EMG Patient Report Ordering Doctor: Reba Bowen DATE OF SERVICE: 07/15/24 Riley presents for electrodiagnostic testing of the upper limbs. Reports a cramping sensation in both hands and wrists. Electrodiagnostic findings: Median motor nerve demonstrates normal distal latency, amplitude and conduction velocity bilaterally. Normal ulnar motor response bilaterally, including conduction across the elbow. Normal median and ulnar F?waves. Sensory responses within normal limits. Needle EMG testing was performed upper limbs. All muscles tested showed no evidence of denervation with normal motor unit action potentials. Electrodiagnostic impression: This is a normal electrodiagnostic study of the upper limbs. There is no electrodiagnostic evidence for peripheral neuropathy, including carpal tunnel or cubital tunnel syndrome. There is no electrodiagnostic evidence for cervical radiculopathy. Multi Select Codes Neurology Neurology Interp Codes: 19573-47 Musc test done w/n test comp (interp) (2) and 93846-76 Nrv cndj test 13/> studies (interp)
== END | disposition home or self-care (01) ==
LOC: PSN 10:04
PROVIDERS: PCP Nurse Practitioner Family; Referring Provider Nurse Practitioner Family; Visit Provider Nurse Practitioner Family
DX: M79.641 Pain in right hand (principal); M79.642 Pain in left hand
CPT/HCPCS: 95886; 95913